=== PATIENT | female | born 1990 | race Two or more races ===

== ENCOUNTER 2020-04-14 12:09 | Inpatient (IN) ==
[2020-04-14] MEDS ORDERED: PITOCIN IVP ONE (12:24)
[2020-04-14] MEDS ORDERED: REGLAN INJ 10 MG VIAL IVP PRN (12:24)
[2020-04-14] MEDS ORDERED: D5LR 1L W PITOCIN 10 UNITS/L 10 UNITS/1,000 ML BAG IV PRN (12:24)
[2020-04-14] MEDS ORDERED: PHENERGAN INJ 25 MG IM PRN ×2 (12:24→18:36)
[2020-04-14] MEDS ORDERED: STADOL INJ IVP PRN (12:25)
[2020-04-14] MEDS ORDERED: BETADINE SOLN ONE (12:29)
[2020-04-14] MEDS ORDERED: D5 1/2 NS 1L W PITOCIN 20 UNITS/L 20 UNITS/1,000 ML BAG IV ONE (12:30)
[2020-04-14 12:57] LABS: BILIRUBIN,URINE NEGATIVE (NEGATIVE); BLOOD/HEMOGLOBIN,URINE 5+ (NEGATIVE); GLUCOSE, URINE NEGATIVE (NEGATIVE); KETONES,URINE NEGATIVE (NEGATIVE); LEUKOCYTE ESTERASE ,URINE 3+ (NEGATIVE); NITRITES,URINE NEGATIVE (NEGATIVE); PROTEIN,URINE 1+ (NEGATIVE); UROBILINOGEN,URINE NORMAL (NORMAL)
[2020-04-14] MEDS ORDERED: D5 1/2 NS 1000 ML 1,000 ML IV SCH (13:00)
[2020-04-14 13:07] LABS: AMORPHOUS SEDIMENT,UR 1+ /HPF (NEGATIVE); APPEARANCE,URINE CLOUDY (CLEAR); BACTERIA,URINE 1+ /HPF (NEGATIVE); COLOR,URINE YELLOW (YELLOW); SQUAMOUS EPITHELIAL CELL,UR NUMEROUS /HPF (NEGATIVE)
[2020-04-14 13:14] LABS: BASOPHILS % (AUTO) 0.4 % (0.2-1.0); EOSINOPHILS # (AUTO) 0.1 x10^3/uL (0.0-0.2); EOSINOPHILS % (AUTO) 1.5 % (0.9-2.9); HEMATOCRIT 28.9 % (36.0-47.0); HEMOGLOBIN 9.2 g/dL (12.0-16.0); LYMPHOCYTES # (AUTO) 1.5 X10^3/uL (1.3-2.9); LYMPHOCYTES % (AUTO) 25.9 % (21.0-51.0); MEAN CORPUSCULAR HEMOGLOBIN 24.3 pg (27.0-34.0); MEAN CORPUSCULAR HGB CONC 31.7 g/dL (33.0-35.0); MEAN CORPUSCULAR VOLUME 76.5 fL (80.0-100.0); MEAN PLATELET VOLUME 8.5 fL (7.4-11.0); MONOCYTES # (AUTO) 0.4 x10^3/uL (0.3-0.8); MONOCYTES % (AUTO) 6.9 % (0.0-13.0); NEUTROPHILS # (AUTO) 3.9 x10^3/uL (2.2-4.8); NEUTROPHILS % (AUTO) 65.3 % (42.0-75.0); PLATELET COUNT 281 X10^3/uL (150.0-450.0); RED BLOOD COUNT 3.78 X10^6/uL (3.5-5.4); WHITE BLOOD COUNT 5.9 X10^3/uL (3.6-10.0)
[2020-04-14 13:17] LABS: BLOOD UREA NITROGEN 8 mg/dL (7-18); CALCIUM 9.4 mg/dL (8.5-10.1); CARBON DIOXIDE 21.9 mmol/L (21-32); CHLORIDE 105 mmol/L (98-107); CREATININE 0.63 mg/dL (0.55-1.02); SODIUM 137 mmol/L (136-145); eGFR NON BLACK RACES > 60 (>60)
[2020-04-14 13:43] LABS: PLATELET MORPHOLOGY COMMENT NORMAL (NORMAL)
[2020-04-14] MEDS ORDERED: STADOL INJ ONE ×2 (15:47→18:17)
[2020-04-14] MEDS ORDERED: MOTRIN TAB 800 MG PO PRN (18:36)
[2020-04-14] MEDS ORDERED: D5 1/2 NS 1000 ML 1,000 ML with PITOCIN 20 UNITS IV SCH ×2 (19:00)
[2020-04-14] MEDS ORDERED: DERMOPLAST PAIN RELIEF SPRAY TOP PRN (19:07)
[2020-04-14] MEDS ORDERED: ADACEL or BOOSTRIX TDaP VACCINE IM ONE (19:07)
[2020-04-14] MEDS ORDERED: AMBIEN PO PRN (19:07)
[2020-04-14] MEDS ORDERED: MILK OF MAGNESIA PO PRN (19:07)
[2020-04-15 06:46] LABS: HEMATOCRIT 23.1 % (36.0-47.0); HEMOGLOBIN 7.4 g/dL (12.0-16.0)
[2020-04-15] MEDS: PRENATAL PLUS PO SCH (08:34)
[2020-04-15] MEDS ORDERED: NS 100 ML IV 100 ML with VENOFER 400 MG IV NR ×2 (09:08)
[2020-04-15] MEDS ORDERED: ADACEL or BOOSTRIX TDaP VACCINE IM ONE (22:27)
[2020-04-16 08:00] VITALS: BP 119/69
[2020-04-16] MEDS: PRENATAL PLUS PO SCH (08:23)
[2020-04-16] MEDS ORDERED: NS 100 ML IV 100 ML with VENOFER 400 MG IV NR ×2 (09:18)
== END 2020-04-16 12:35 | disposition home or self-care (01) | DRG 807 ==
LOC: LD 12:09 → MED/SURG 19:09
PROVIDERS: ADMIT Obstetrics & Gynecology Obstetrics; ATTEND Obstetrics & Gynecology Obstetrics
DX: Z3A.40 40 weeks gestation of pregnancy; Z23 Encounter for immunization; O26.893 Other specified pregnancy related conditions, third trimester; O70.1 Second degree perineal laceration during delivery; D50.0 Iron deficiency anemia secondary to blood loss (chronic); Z20.828 Contact with and (suspected) exposure to other viral communicable diseases; Z37.0 Single live birth